=== PATIENT | male | born 1980 | race Caucasian/White ===

== ENCOUNTER 2017-02-09 07:33 | Emergency (ER) | payer OTHER, MEDICARE ==
[~2017-02-09] VITALS: Ht 182.9 cm; Wt 114.6 kg
[~2017-02-09 07:33] MED LIST: BACL10TA PO; CEPH500C5 PO; CHOL5000 PO; DICL100G15 TP; DICL50TA8 PO; GABA600T2 PO; METH4TAB3 PO; METH500T PO; OXYC-145 PO; QUET400T PO; RANI300T7 PO; WALKERFR
[2017-02-09] MEDS ORDERED: diphenhydrAMINE 25mg capsule PO ONE (07:55)
[2017-02-09] MEDS ORDERED: LORazepam 2 mg/ml vial IM ONE (07:55)
[2017-02-09 08:22] LABS: BASOPHILS # (AUTO) 0.1 X10'3 (0-0.2); BASOPHILS % (AUTO) 0.6 % (0-1); EOSINOPHILS # (AUTO) 0.2 X10'3 (0-0.9); EOSINOPHILS % (AUTO) 2.4 % (0-6); HEMATOCRIT 46.8 % (42.0-52.0); HEMOGLOBIN 15.7 g/dl (14.0-17.9); LYMPHOCYTES # (AUTO) 1.2 X10'3 (1.1-4.8); MEAN CORPUSCULAR HEMOGLOBIN 29.3 PG (27.0-31.0); MEAN CORPUSCULAR HGB CONC 33.6 % (33.0-36.5); MEAN CORPUSCULAR VOLUME 87.3 FL (78-98); MEAN PLATELET VOLUME 6.9 FL (7.4-10.4); MONOCYTES # (AUTO) 0.6 X10'3 (0-0.9); MONOCYTES % (AUTO) 7.3 % (2-12); NEUTROPHILS # (AUTO) 6.7 X10'3 (1.8-7.7); NEUTROPHILS % (AUTO) 75.7 % (42-75); PLATELET COUNT 264 X10'3 (140-440); RED BLOOD COUNT 5.36 X10'6 (4.70-6.10); RED CELL DISTRIBUTION WIDTH 12.8 % (11.5-14.5); WHITE BLOOD COUNT 8.8 X10'3 (4.5-11.0)
[2017-02-09 08:39] LABS: ALANINE AMINOTRANSFERASE 72 U/L (12-78); ALBUMIN 3.6 G/DL (3.4-5.0); ALBUMIN/GLOBULIN RATIO 1.1 (1.1-1.5); ALKALINE PHOSPHATASE 82 IU/L (46-116); ANION GAP 10 (8-16); ASPARTATE AMINO TRANSFERASE 65 U/L (10-37); BILIRUBIN,TOTAL 0.5 MG/DL (0.1-1.0); BLOOD UREA NITROGEN 13 MG/DL (7-18); BUN/CREATININE RATIO 14.4 (5.4-32.0); CALCIUM 8.7 MG/DL (8.5-10.1); CHLORIDE 105 MMOL/L (99-107); GLUCOSE 154 MG/DL (70-104); POTASSIUM 3.5 MMOL/L (3.5-5.1); SODIUM 140 MMOL/L (135-145); TOTAL CARBON DIOXIDE 25.5 MMOL/L (24-32); TOTAL PROTEIN 6.9 G/DL (6.4-8.2); eGFR > 90 ML/MIN
[2017-02-09 08:47] LABS: ETHANOL < 0.010 GM/DL (0.0-0.010)
[2017-02-09 08:53] LABS: ACETAMINOPHEN < 2.0 UG/ML (10-30)
[2017-02-09 08:57] LABS: CLARITY,URINE CLEAR (Clear); COLOR,URINE YELLOW (Yellow); GLUCOSE, URINE NEGATIVE (Neg); KETONES,URINE TRACE mg/dl (Neg); LEUKOCYTE ESTERASE ,URINE NEGATIVE (Neg); NITRITES, URINE NEGATIVE (Neg); OCCULT BLOOD,URINE NEGATIVE (Neg); PROTEIN,URINE NEGATIVE (Neg); UROBILINOGEN,URINE 0.2 E.U/dL (0.2-1.0)
[2017-02-09 08:58] LABS: UA COLLECTION TYPE CLN CATCH MIDSTREAM
[2017-02-09 09:14] LABS: URINE AMPHETAMINE SCREEN POSITIVE (Neg); URINE BARBITUATE SCREEN NEGATIVE (Neg); URINE BENZODIAZEPINES SCREEN NEGATIVE (Neg); URINE CANNABINOID SCREEN POSITIVE (Neg); URINE COCAINE SCREEN NEGATIVE (Neg); URINE METHADONE SCREEN NEGATIVE (Neg); URINE OPIATE SCREEN NEGATIVE (Neg); URINE PHENCYCLIDINE SCREEN NEGATIVE (Neg)
[2017-02-09 12:56] LABS: ALANINE AMINOTRANSFERASE 64 U/L (12-78); ALBUMIN 3.2 G/DL (3.4-5.0); ALBUMIN/GLOBULIN RATIO 1.1 (1.1-1.5); ALKALINE PHOSPHATASE 72 IU/L (46-116); ANION GAP 7 (8-16); ASPARTATE AMINO TRANSFERASE 57 U/L (10-37); BILIRUBIN,TOTAL 0.5 MG/DL (0.1-1.0); BLOOD UREA NITROGEN 13 MG/DL (7-18); BUN/CREATININE RATIO 16.9 (5.4-32.0); CALCIUM 8.4 MG/DL (8.5-10.1); CHLORIDE 104 MMOL/L (99-107); CREATININE 0.77 MG/DL (0.60-1.10); GLUCOSE 96 MG/DL (70-104); POTASSIUM 3.5 MMOL/L (3.5-5.1); SODIUM 138 MMOL/L (135-145); TOTAL CARBON DIOXIDE 26.6 MMOL/L (24-32); TOTAL PROTEIN 6.1 G/DL (6.4-8.2); eGFR > 90 ML/MIN
[2017-02-09 13:08] LABS: CREATINE KINASE 1498 U/L (39-308)
[2017-02-09] MEDS ORDERED: normal saline 1000ML IV soln IVB ONE (14:45)
[2017-02-09] MEDS ORDERED: diphenhydrAMINE 50 mg/ml inj IM ONE (15:10)
[2017-02-09] MEDS ORDERED: LORazepam 2 mg/ml vial IV ONE ×2 (17:15→19:00)
[2017-02-09] MEDS ORDERED: magnesium 2GM in 50ml NS 50 ML IV ONE (19:00)
[2017-02-09 20:09] LABS: ALANINE AMINOTRANSFERASE 55 U/L (12-78); ALBUMIN 2.8 G/DL (3.4-5.0); ALKALINE PHOSPHATASE 64 IU/L (46-116); ANION GAP 6 (8-16); ASPARTATE AMINO TRANSFERASE 51 U/L (10-37); BILIRUBIN,TOTAL 0.3 MG/DL (0.1-1.0); BLOOD UREA NITROGEN 10 MG/DL (7-18); CALCIUM 7.9 MG/DL (8.5-10.1); CHLORIDE 106 MMOL/L (99-107); CREATININE 0.91 MG/DL (0.60-1.10); GLUCOSE 114 MG/DL (70-104); POTASSIUM 3.6 MMOL/L (3.5-5.1); SODIUM 140 MMOL/L (135-145); TOTAL CARBON DIOXIDE 27.7 MMOL/L (24-32); TOTAL PROTEIN 5.5 G/DL (6.4-8.2); eGFR > 90 ML/MIN
[2017-02-09 20:18] LABS: CREATINE KINASE 1223 U/L (39-308)
[2017-02-09] MEDS ORDERED: QUETIAPINE FUMARATE 200 MG PO SCH (21:00)
[2017-02-10] MEDS ORDERED: LORazepam 2 mg/ml vial IV ONE (00:30)
[2017-02-10] MEDS ORDERED: LORazepam 2 mg/ml vial IM ONE (00:55)
[2017-02-10] MEDS: LORazepam 2 mg/ml vial IM PRN ×5 (05:56→21:38)
[2017-02-10] MEDS ORDERED: HYDROcodone/acetaminophen 5mg/325mg tablet PO ONE (10:00)
[2017-02-10] MEDS ORDERED: acetaminophen 325mg tablet PO PRN (20:50)
[2017-02-10 21:18] LABS: CKMB RELATIVE INDEX 0.5 RATIO (0-2.5)
[2017-02-11] MEDS: LORazepam 2 mg/ml vial IM PRN ×2 (03:33→09:18)
[2017-02-11] MEDS ORDERED: HYDROcodone/acetaminophen 10/325mg tab PO ONE (08:45)
[2017-02-11] MEDS ORDERED: HYDROcodone/acetaminophen 10/325mg tab PO PRN (14:00)
[2017-02-11] MEDS: LORazepam 1 MG tablet PO PRN ×2 (14:26→20:13)
[2017-02-11] MEDS: morphine ER 30mg tablet PO SCH ×2 (16:00→20:13)
[2017-02-12] MEDS: morphine ER 30mg tablet PO SCH (07:10)
[2017-02-12 08:50] VITALS: BP 102/65
== END 2017-02-12 08:53 ==
LOC: ER 07:34
DX: T43.592A Poisoning by other antipsychotics and neuroleptics, intentional self-harm, initial encounter (principal); T43.622A Poisoning by amphetamines, intentional self-harm, initial encounter; G89.29 Other chronic pain; F41.9 Anxiety disorder, unspecified; F15.10 Other stimulant abuse, uncomplicated; F43.10 Post-traumatic stress disorder, unspecified; Z88.8 Allergy status to other drugs, medicaments and biological substances; Y92.89 Other specified places as the place of occurrence of the external cause
CPT/HCPCS: 36415; 80053; 80305; 80320; 80329; 81003; 82550; 82553; 83605; 84443; 85025; 93005; 96361; 96365; 96372; 96375; 96376; 99285; J1200; J2060; J7030; Q0163

== ENCOUNTER 2017-03-09 10:05 | Emergency (ER) | payer OTHER, MEDICARE ==
[~2017-03-09] VITALS: Ht 193 cm; Wt 106.4 kg
[~2017-03-09 10:05] MED LIST changes: -BACL10TA PO; -CEPH500C5 PO; -CHOL5000 PO; -DICL100G15 TP; -DICL50TA8 PO; -GABA600T2 PO; -METH4TAB3 PO; -METH500T PO; -OXYC-145 PO; -RANI300T7 PO; -WALKERFR
[2017-03-09 12:29] LABS: BASOPHILS # (AUTO) 0.1 X10'3 (0-0.2); BASOPHILS % (AUTO) 1.3 % (0-1); EOSINOPHILS % (AUTO) 0.2 % (0-6); HEMATOCRIT 45.7 % (42.0-52.0); LYMPHOCYTES # (AUTO) 1.8 X10'3 (1.1-4.8); LYMPHOCYTES % (AUTO) 20.7 % (21-51); MEAN CORPUSCULAR HEMOGLOBIN 29.5 PG (27.0-31.0); MEAN CORPUSCULAR VOLUME 84.3 FL (78-98); MEAN PLATELET VOLUME 6.9 FL (7.4-10.4); MONOCYTES # (AUTO) 0.4 X10'3 (0-0.9); NEUTROPHILS # (AUTO) 6.5 X10'3 (1.8-7.7); NEUTROPHILS % (AUTO) 72.8 % (42-75); PLATELET COUNT 274 X10'3 (140-440); RED BLOOD COUNT 5.42 X10'6 (4.70-6.10); RED CELL DISTRIBUTION WIDTH 13.4 % (11.5-14.5); WHITE BLOOD COUNT 8.9 X10'3 (4.5-11.0)
[2017-03-09 12:44] LABS: ALANINE AMINOTRANSFERASE 66 U/L (12-78); ALBUMIN/GLOBULIN RATIO 1.1 (1.1-1.5); ALKALINE PHOSPHATASE 93 IU/L (46-116); ANION GAP 11 (8-16); ASPARTATE AMINO TRANSFERASE 26 U/L (10-37); BILIRUBIN,TOTAL 0.6 MG/DL (0.1-1.0); BLOOD UREA NITROGEN 19 MG/DL (7-18); BUN/CREATININE RATIO 23.8 (5.4-32.0); CALCIUM 9.3 MG/DL (8.5-10.1); CHLORIDE 106 MMOL/L (99-107); GLUCOSE 88 MG/DL (70-104); POTASSIUM 3.8 MMOL/L (3.5-5.1); SODIUM 143 MMOL/L (135-145); TOTAL CARBON DIOXIDE 26.5 MMOL/L (24-32); TOTAL PROTEIN 7.8 G/DL (6.4-8.2); eGFR > 90 ML/MIN
[2017-03-09 13:21] VITALS: BP 135/64
== END 2017-03-09 13:22 | disposition home or self-care (01) ==
LOC: ER 10:06
DX: K42.9 Umbilical hernia without obstruction or gangrene (principal); G89.29 Other chronic pain; Z98.890 Other specified postprocedural states; Z88.8 Allergy status to other drugs, medicaments and biological substances; Z79.899 Other long term (current) drug therapy
CPT/HCPCS: 36415; 80053; 85025; 99284; J7030

== ENCOUNTER 2017-03-18 00:35 | Inpatient (IN) | payer OTHER, MEDICARE ==
[~2017-03-18] VITALS: Ht 193 cm; Wt 115.0 kg
[2017-03-18] MEDS ORDERED: morphine 2 MG/ML inj. syringe IV ONE (00:50)
[2017-03-18] MEDS ORDERED: piperacillin/tazo 3.375gm/50ml 50 ML IV ONE (00:50)
[2017-03-18] MEDS ORDERED: vancomycin/NS 1 GM ADD-VANTAGE 250 ML IV ONE (00:50)
[2017-03-18] MEDS ORDERED: normal saline 1000ML IV soln IV ONE (00:50)
[2017-03-18] MEDS ORDERED: ondansetron/PF 4mg/2ml inj IV ONE (00:50)
[2017-03-18 01:20] LABS: CLARITY,URINE CLEAR (Clear); COLOR,URINE AMBER (Yellow); GLUCOSE, URINE NEGATIVE (Neg); KETONES,URINE NEGATIVE (Neg); LEUKOCYTE ESTERASE ,URINE NEGATIVE (Neg); NITRITES, URINE NEGATIVE (Neg); OCCULT BLOOD,URINE NEGATIVE (Neg); PROTEIN,URINE NEGATIVE (Neg)
[2017-03-18 01:21] LABS: UA COLLECTION TYPE CLN CATCH MIDSTREAM
[2017-03-18 01:51] LABS: ALANINE AMINOTRANSFERASE 32 U/L (12-78); ALBUMIN 3.6 G/DL (3.4-5.0); ALBUMIN/GLOBULIN RATIO 1.1 (1.1-1.5); ALKALINE PHOSPHATASE 80 IU/L (46-116); ANION GAP 8 (8-16); ASPARTATE AMINO TRANSFERASE 38 U/L (10-37); BLOOD UREA NITROGEN 13 MG/DL (7-18); BUN/CREATININE RATIO 14.4 (5.4-32.0); CALCIUM 8.6 MG/DL (8.5-10.1); CHLORIDE 104 MMOL/L (99-107); GLUCOSE 95 MG/DL (70-104); MAGNESIUM 1.9 MG/DL (1.5-2.4); POTASSIUM 3.3 MMOL/L (3.5-5.1); SODIUM 139 MMOL/L (135-145); TOTAL CARBON DIOXIDE 27.5 MMOL/L (24-32); TOTAL PROTEIN 6.9 G/DL (6.4-8.2); eGFR > 90 ML/MIN
[2017-03-18 01:54] LABS: BASOPHILS # (AUTO) 0.1 X10'3 (0-0.2); BASOPHILS % (AUTO) 0.5 % (0-1); EOSINOPHILS # (AUTO) 0.1 X10'3 (0-0.9); EOSINOPHILS % (AUTO) 1.1 % (0-6); HEMOGLOBIN 14.8 g/dl (14.0-17.9); LYMPHOCYTES # (AUTO) 2.3 X10'3 (1.1-4.8); LYMPHOCYTES % (AUTO) 18.7 % (21-51); MEAN CORPUSCULAR HEMOGLOBIN 29.5 PG (27.0-31.0); MEAN CORPUSCULAR HGB CONC 34.3 % (33.0-36.5); MEAN CORPUSCULAR VOLUME 85.9 FL (78-98); MEAN PLATELET VOLUME 7.3 FL (7.4-10.4); MONOCYTES # (AUTO) 0.9 X10'3 (0-0.9); MONOCYTES % (AUTO) 6.9 % (2-12); NEUTROPHILS # (AUTO) 9.1 X10'3 (1.8-7.7); NEUTROPHILS % (AUTO) 72.8 % (42-75); PLATELET COUNT 294 X10'3 (140-440); RED CELL DISTRIBUTION WIDTH 13.8 % (11.5-14.5); WHITE BLOOD COUNT 12.5 X10'3 (4.5-11.0)
[2017-03-18] MEDS ORDERED: iohexol 300mg/ml 100ml inj. ONE (02:05)
[2017-03-18] MEDS ORDERED: mag hydrox/Alum hydrox/simeth 30ml oral suspension PO PRN (02:20)
[2017-03-18] MEDS ORDERED: acetaminophen 325mg tablet PO PRN (02:20)
[2017-03-18] MEDS ORDERED: ondansetron/PF 4mg/2ml inj IV PRN (02:20)
[2017-03-18] MEDS ORDERED: magnesium hydroxide 30ml (MOM) UD suspension PO PRN (02:20)
[2017-03-18] MEDS: HYDROcodone/acetaminophen 10/325mg tab PO PRN ×3 (02:47→18:57)
[2017-03-18] MEDS: lactobacillus rhamnosus 10,000 MMU CELLS/CAPSULE PO SCH ×2 (07:18→17:54)
[2017-03-18] MEDS: normal saline 1000ml 1,000 ML IV SCH ×3 (07:19→17:16)
[2017-03-18] MEDS: prazosin 1mg capsule PO SCH ×2 (07:24→20:00)
[2017-03-18] MEDS: heparin, porcine 5000 units/ml vial SQ SCH ×2 (07:25→20:05)
[2017-03-18] MEDS: piperacillin/tazo 3.375gm/50ml 50 ML IV SCH ×3 (07:25→20:05)
[2017-03-18 07:45] VITALS: BP 125/71
[2017-03-18] MEDS: morphine 2 MG/ML inj. syringe IV PRN ×2 (08:57→20:05)
[2017-03-18 10:00] VITALS: BP 105/76
[2017-03-18 17:00] VITALS: BP 113/81
[2017-03-18] MEDS: quetiapine 100mg tablet PO SCH (21:27)
[2017-03-18 22:00] VITALS: BP 121/67
[2017-03-19] MEDS: piperacillin/tazo 3.375gm/50ml 50 ML IV SCH ×2 (01:38→08:49)
[2017-03-19] MEDS: HYDROcodone/acetaminophen 10/325mg tab PO PRN ×4 (04:28→19:10)
[2017-03-19] MEDS: normal saline 1000ml 1,000 ML IV SCH ×2 (04:28→20:48)
[2017-03-19] MEDS: morphine 2 MG/ML inj. syringe IV PRN ×4 (05:00→20:41)
[2017-03-19 06:00] VITALS: BP 132/65
[2017-03-19 06:00] LABS: BASOPHILS # (AUTO) 0.1 X10'3 (0-0.2); BASOPHILS % (AUTO) 1.4 % (0-1); EOSINOPHILS # (AUTO) 0.2 X10'3 (0-0.9); EOSINOPHILS % (AUTO) 2.4 % (0-6); HEMATOCRIT 38.9 % (42.0-52.0); HEMOGLOBIN 13.4 g/dl (14.0-17.9); LYMPHOCYTES # (AUTO) 2.1 X10'3 (1.1-4.8); LYMPHOCYTES % (AUTO) 32.4 % (21-51); MEAN CORPUSCULAR HEMOGLOBIN 29.6 PG (27.0-31.0); MEAN CORPUSCULAR HGB CONC 34.6 % (33.0-36.5); MEAN CORPUSCULAR VOLUME 85.6 FL (78-98); MEAN PLATELET VOLUME 7.1 FL (7.4-10.4); MONOCYTES # (AUTO) 0.5 X10'3 (0-0.9); MONOCYTES % (AUTO) 7.3 % (2-12); NEUTROPHILS # (AUTO) 3.6 X10'3 (1.8-7.7); NEUTROPHILS % (AUTO) 56.5 % (42-75); PLATELET COUNT 238 X10'3 (140-440); RED BLOOD COUNT 4.54 X10'6 (4.70-6.10); RED CELL DISTRIBUTION WIDTH 13.3 % (11.5-14.5); WHITE BLOOD COUNT 6.4 X10'3 (4.5-11.0)
[2017-03-19 06:36] LABS: ALANINE AMINOTRANSFERASE 26 U/L (12-78); ALBUMIN 2.7 G/DL (3.4-5.0); ALBUMIN/GLOBULIN RATIO 0.9 (1.1-1.5); ALKALINE PHOSPHATASE 59 IU/L (46-116); ANION GAP 9 (8-16); ASPARTATE AMINO TRANSFERASE 24 U/L (10-37); BILIRUBIN,TOTAL 0.5 MG/DL (0.1-1.0); BLOOD UREA NITROGEN 8 MG/DL (7-18); BUN/CREATININE RATIO 6.7 (5.4-32.0); CALCIUM 7.9 MG/DL (8.5-10.1); CHLORIDE 109 MMOL/L (99-107); GLUCOSE 118 MG/DL (70-104); POTASSIUM 3.6 MMOL/L (3.5-5.1); SODIUM 144 MMOL/L (135-145); TOTAL PROTEIN 5.6 G/DL (6.4-8.2); eGFR 69 ML/MIN
[2017-03-19] MEDS: prazosin 1mg capsule PO SCH ×2 (08:48→20:40)
[2017-03-19] MEDS: lactobacillus rhamnosus 10,000 MMU CELLS/CAPSULE PO SCH ×2 (08:48→17:06)
[2017-03-19] MEDS: heparin, porcine 5000 units/ml vial SQ SCH ×2 (08:49→20:40)
[2017-03-19 08:50] VITALS: BP 129/76
[2017-03-19 10:00] VITALS: BP 121/68
[2017-03-19] MEDS ORDERED: VANCOMYCIN LEVEL IV ONE (10:30)
[2017-03-19 10:53] LABS: VANCOMYCIN,TROUGH 11.3 UG/ML (6.0-14.0)
[2017-03-19 12:45] LABS: C-REACTIVE PROTEIN 2.65 MG/DL (0.0-0.5)
[2017-03-19] MEDS: cefTRIAXone 1g/NS 100ml IVPB 100 ML IV SCH (13:24)
[2017-03-19] MEDS: linezolid 600mg/300ml PREMIX 300 ML IV SCH ×2 (14:03→20:47)
[2017-03-19 18:00] VITALS: BP 126/71
[2017-03-19] MEDS: quetiapine 100mg tablet PO SCH (20:40)
[2017-03-19 22:00] VITALS: BP 130/74
[2017-03-20] MEDS: HYDROcodone/acetaminophen 10/325mg tab PO PRN ×5 (02:55→21:22)
[2017-03-20] MEDS: morphine 2 MG/ML inj. syringe IV PRN ×7 (05:39→23:18)
[2017-03-20 06:03] LABS: BASOPHILS % (AUTO) 0.8 % (0-1); EOSINOPHILS # (AUTO) 0.2 X10'3 (0-0.9); EOSINOPHILS % (AUTO) 3.7 % (0-6); HEMATOCRIT 39.5 % (42.0-52.0); HEMOGLOBIN 13.8 g/dl (14.0-17.9); LYMPHOCYTES # (AUTO) 1.9 X10'3 (1.1-4.8); LYMPHOCYTES % (AUTO) 37.8 % (21-51); MEAN CORPUSCULAR HEMOGLOBIN 29.6 PG (27.0-31.0); MEAN CORPUSCULAR HGB CONC 34.8 % (33.0-36.5); MEAN CORPUSCULAR VOLUME 85.1 FL (78-98); MEAN PLATELET VOLUME 6.9 FL (7.4-10.4); MONOCYTES # (AUTO) 0.5 X10'3 (0-0.9); MONOCYTES % (AUTO) 9.6 % (2-12); NEUTROPHILS # (AUTO) 2.4 X10'3 (1.8-7.7); NEUTROPHILS % (AUTO) 48.1 % (42-75); PLATELET COUNT 253 X10'3 (140-440); RED BLOOD COUNT 4.64 X10'6 (4.70-6.10); RED CELL DISTRIBUTION WIDTH 13.6 % (11.5-14.5)
[2017-03-20 06:36] LABS: ALANINE AMINOTRANSFERASE 25 U/L (12-78); ALBUMIN 2.7 G/DL (3.4-5.0); ALBUMIN/GLOBULIN RATIO 0.9 (1.1-1.5); ALKALINE PHOSPHATASE 61 IU/L (46-116); ANION GAP 5 (8-16); ASPARTATE AMINO TRANSFERASE 19 U/L (10-37); BILIRUBIN,TOTAL 0.2 MG/DL (0.1-1.0); BLOOD UREA NITROGEN 7 MG/DL (7-18); BUN/CREATININE RATIO 8.8 (5.4-32.0); CALCIUM 8.1 MG/DL (8.5-10.1); CHLORIDE 107 MMOL/L (99-107); GLUCOSE 82 MG/DL (70-104); POTASSIUM 3.9 MMOL/L (3.5-5.1); SODIUM 142 MMOL/L (135-145); TOTAL CARBON DIOXIDE 29.6 MMOL/L (24-32); TOTAL PROTEIN 5.7 G/DL (6.4-8.2); eGFR > 90 ML/MIN
[2017-03-20 07:02] VITALS: BP 134/74
[2017-03-20] MEDS: cefTRIAXone 1g/NS 100ml IVPB 100 ML IV SCH (08:07)
[2017-03-20] MEDS: normal saline 1000ml 1,000 ML IV SCH ×3 (08:08→21:18)
[2017-03-20] MEDS: lactobacillus rhamnosus 10,000 MMU CELLS/CAPSULE PO SCH ×2 (08:08→17:51)
[2017-03-20] MEDS: prazosin 1mg capsule PO SCH ×2 (08:08→21:17)
[2017-03-20] MEDS: heparin, porcine 5000 units/ml vial SQ SCH ×2 (08:10→21:17)
[2017-03-20] MEDS: linezolid 600mg tablet PO SCH ×2 (08:45→21:17)
[2017-03-20 11:55] VITALS: BP 108/70
[2017-03-20 18:00] VITALS: BP 134/80
[2017-03-20] MEDS: quetiapine 100mg tablet PO SCH (21:17)
[2017-03-20 22:00] VITALS: BP 134/98
[2017-03-21] MEDS: morphine 2 MG/ML inj. syringe IV PRN ×5 (04:09→21:29)
[2017-03-21] MEDS: HYDROcodone/acetaminophen 10/325mg tab PO PRN ×4 (05:42→19:31)
[2017-03-21 06:00] VITALS: BP 131/72
[2017-03-21 06:10] LABS: BASOPHILS % (AUTO) 0.8 % (0-1); EOSINOPHILS # (AUTO) 0.2 X10'3 (0-0.9); HEMATOCRIT 41.6 % (42.0-52.0); HEMOGLOBIN 14.6 g/dl (14.0-17.9); LYMPHOCYTES # (AUTO) 1.6 X10'3 (1.1-4.8); LYMPHOCYTES % (AUTO) 33.4 % (21-51); MEAN CORPUSCULAR HEMOGLOBIN 29.7 PG (27.0-31.0); MEAN CORPUSCULAR HGB CONC 34.9 % (33.0-36.5); MEAN CORPUSCULAR VOLUME 85.1 FL (78-98); MEAN PLATELET VOLUME 6.4 FL (7.4-10.4); MONOCYTES # (AUTO) 0.5 X10'3 (0-0.9); MONOCYTES % (AUTO) 9.7 % (2-12); NEUTROPHILS # (AUTO) 2.5 X10'3 (1.8-7.7); NEUTROPHILS % (AUTO) 51.1 % (42-75); PLATELET COUNT 262 X10'3 (140-440); RED BLOOD COUNT 4.89 X10'6 (4.70-6.10); RED CELL DISTRIBUTION WIDTH 14.2 % (11.5-14.5); WHITE BLOOD COUNT 4.9 X10'3 (4.5-11.0)
[2017-03-21 07:00] LABS: ALANINE AMINOTRANSFERASE 30 U/L (12-78); ALBUMIN 2.8 G/DL (3.4-5.0); ALBUMIN/GLOBULIN RATIO 0.9 (1.1-1.5); ALKALINE PHOSPHATASE 62 IU/L (46-116); ANION GAP 8 (8-16); ASPARTATE AMINO TRANSFERASE 21 U/L (10-37); BILIRUBIN,TOTAL 0.3 MG/DL (0.1-1.0); BLOOD UREA NITROGEN 8 MG/DL (7-18); C-REACTIVE PROTEIN 0.84 MG/DL (0.0-0.5); CALCIUM 8.2 MG/DL (8.5-10.1); CHLORIDE 106 MMOL/L (99-107); CREATININE 0.89 MG/DL (0.60-1.10); GLUCOSE 91 MG/DL (70-104); POTASSIUM 4.2 MMOL/L (3.5-5.1); SODIUM 143 MMOL/L (135-145); TOTAL CARBON DIOXIDE 29.1 MMOL/L (24-32); TOTAL PROTEIN 5.8 G/DL (6.4-8.2); eGFR > 90 ML/MIN
[2017-03-21] MEDS: prazosin 1mg capsule PO SCH ×2 (07:31→19:30)
[2017-03-21] MEDS: linezolid 600mg tablet PO SCH ×2 (07:31→19:30)
[2017-03-21] MEDS: normal saline 1000ml 1,000 ML IV SCH (07:31)
[2017-03-21] MEDS: heparin, porcine 5000 units/ml vial SQ SCH ×2 (07:31→19:30)
[2017-03-21] MEDS: lactobacillus rhamnosus 10,000 MMU CELLS/CAPSULE PO SCH ×2 (07:31→19:30)
[2017-03-21] MEDS: CefTRIAXone 1 gm/50ml D5W ADV 50 ML IV SCH (07:32)
[2017-03-21 10:00] VITALS: BP 114/70
[2017-03-21 18:00] VITALS: BP 126/70
[2017-03-21] MEDS: quetiapine 100mg tablet PO SCH (21:29)
[2017-03-21 22:00] VITALS: BP 120/72
[2017-03-22] MEDS: HYDROcodone/acetaminophen 10/325mg tab PO PRN ×2 (02:40→09:13)
[2017-03-22 05:00] VITALS: BP 115/75
[2017-03-22] MEDS: morphine 2 MG/ML inj. syringe IV PRN (05:15)
[2017-03-22 05:55] LABS: BASOPHILS # (AUTO) 0.1 X10'3 (0-0.2); BASOPHILS % (AUTO) 1.1 % (0-1); EOSINOPHILS # (AUTO) 0.3 X10'3 (0-0.9); EOSINOPHILS % (AUTO) 5.3 % (0-6); HEMOGLOBIN 15.6 g/dl (14.0-17.9); LYMPHOCYTES % (AUTO) 39.3 % (21-51); MEAN CORPUSCULAR HEMOGLOBIN 29.8 PG (27.0-31.0); MEAN CORPUSCULAR HGB CONC 34.7 % (33.0-36.5); MEAN CORPUSCULAR VOLUME 85.9 FL (78-98); MEAN PLATELET VOLUME 6.7 FL (7.4-10.4); MONOCYTES # (AUTO) 0.4 X10'3 (0-0.9); MONOCYTES % (AUTO) 8.6 % (2-12); NEUTROPHILS # (AUTO) 2.3 X10'3 (1.8-7.7); NEUTROPHILS % (AUTO) 45.7 % (42-75); PLATELET COUNT 266 X10'3 (140-440); RED BLOOD COUNT 5.24 X10'6 (4.70-6.10); RED CELL DISTRIBUTION WIDTH 14.2 % (11.5-14.5)
[2017-03-22 06:22] LABS: ALANINE AMINOTRANSFERASE 58 U/L (12-78); ALBUMIN 3.1 G/DL (3.4-5.0); ALBUMIN/GLOBULIN RATIO 0.9 (1.1-1.5); ALKALINE PHOSPHATASE 68 IU/L (46-116); ANION GAP 7 (8-16); ASPARTATE AMINO TRANSFERASE 50 U/L (10-37); BILIRUBIN,TOTAL 0.3 MG/DL (0.1-1.0); BLOOD UREA NITROGEN 9 MG/DL (7-18); CALCIUM 8.8 MG/DL (8.5-10.1); CHLORIDE 105 MMOL/L (99-107); CREATININE 0.82 MG/DL (0.60-1.10); GLUCOSE 84 MG/DL (70-104); POTASSIUM 4.3 MMOL/L (3.5-5.1); SODIUM 142 MMOL/L (135-145); TOTAL CARBON DIOXIDE 29.6 MMOL/L (24-32); TOTAL PROTEIN 6.4 G/DL (6.4-8.2); eGFR > 90 ML/MIN
[2017-03-22] MEDS: prazosin 1mg capsule PO SCH (08:19)
[2017-03-22] MEDS: CefTRIAXone 1 gm/50ml D5W ADV 50 ML IV SCH (08:19)
[2017-03-22] MEDS: lactobacillus rhamnosus 10,000 MMU CELLS/CAPSULE PO SCH (08:19)
[2017-03-22] MEDS: heparin, porcine 5000 units/ml vial SQ SCH (08:23)
[2017-03-22] MEDS: linezolid 600mg tablet PO SCH (08:30)
[2017-03-22] MEDS ORDERED: morphine 5 MG/ML injection IV PRN (09:46)
[2017-03-22 10:00] VITALS: BP 124/71
== END 2017-03-22 11:20 | disposition home or self-care (01) | DRG 872 ==
LOC: ER 00:36 → ED HOLD 02:18 → ORTHO 4S 07:45
PROVIDERS: ADMIT Internal Medicine; ATTEND Family Medicine
PROC: BP2U1ZZ Computerized Tomography (CT Scan) of Left Upper Extremity using Low Osmolar Contrast (ICD-10-PCS; principal; 2017-03-18)
DX: A41.9 Sepsis, unspecified organism (principal); N17.9 Acute kidney failure, unspecified; L03.114 Cellulitis of left upper limb; F32.9 Major depressive disorder, single episode, unspecified; F43.10 Post-traumatic stress disorder, unspecified; G89.29 Other chronic pain; F41.9 Anxiety disorder, unspecified; F12.10 Cannabis abuse, uncomplicated; F15.10 Other stimulant abuse, uncomplicated; Z90.49 Acquired absence of other specified parts of digestive tract; Z88.8 Allergy status to other drugs, medicaments and biological substances
CPT/HCPCS: 36415; 73201; 80053; 80202; 81003; 83605; 83735; 84145; 85025; 85651; 86140; 87040; 87070; 93005; 93971; 96374; 96375; 99285; A6257; A6258; A6449; J0696; J1644; J2020; J2270; J2405; J2543; J3370; J7030; Q9967